=== PATIENT | male | born 1995 | race Two or more races ===

== ENCOUNTER 2019-12-04 19:53 | Emergency (ER) | payer SELFPAY ==
[2019-12-04] MEDS ORDERED: Lidocaine 1% with EPINEPHrine 1:100,000 20 ML MDV INFILT ONE (19:54)
--- NOTE | 2019-12-04 21:30 | EDM.PDOC ---
ED HPI GENERAL MEDICAL PROBLEM - General Stated Complaint: CUT FINGER Time Seen by Provider: 12/04/19 20:05 Source of Information: Reports: Patient, Family, Night Time Nanny History Limitations: Reports: No Limitations - History of Present Illness INITIAL COMMENTS - FREE TEXT/NARRATIVE: using a utility knife and it cut his left thumb through the nail about 11am thia morning , minimal amount of bleeding that later stopped , last tetanus 3yrs ago , per pt . Onset: Today Onset Date: 12/04/19 Onset Time: 11:00 Duration: Hour(s): (10), Constant Context: Reports: Trauma Associated Symptoms: Reports: No Other Symptoms Treatments CONTINUITY READER: Reports: Acetaminophen L thumb Pain Score (Numeric/FACES): 2 - Related Data Home Meds: Home Meds cephALEXin [Keflex] 500 mg PO Q8H #15 cap 12/04/19 [Rx] ED ROS GENERAL - Review of Systems Review Of Systems: Comprehensive ROS is negative, except as noted in HPI. ED EXAM, SKIN/RASH Exam: See Below Exam Limited By: No Limitations General Appearance: Alert, WD/WN, No Apparent Distress Eye Exam: Bilateral Eye: EOMI Ears: Normal External Exam Nose: Normal Inspection Throat/Mouth: Normal Inspection Head: Atraumatic, Normocephalic Neck: Supple, Non-Tender, Full Range of Motion Respiratory/Chest: Lungs Clear, Normal Breath Sounds Cardiovascular: Regular Rate, Rhythm, No Edema Extremities: Normal Range of Motion, Non-Tender Neurological: Alert, Oriented, CN II-XII Intact Skin: Warm, Intact Location, Skin: Upper Extremity, Left (left thumb) Characteristics: Other (laceration to the left thumb and nail) Associated features: Swelling ED SKIN PROCEDURES - Laceration/Wound Repair Left Upper Digit - 1st (Thumb) Appearance: Subcutaneous, Clean Distal NVT: Neuro & Vascular Intact, No Tendon Injury Anesthetic Type: Local Local Anesthesia - Lidocaine (Xylocaine): 1% with EPI Local Anesthetic Volume: 5cc Skin Prep: Chlorhexidine (Hibiciens), Saline, Sterile Drape Saline Irrigation (cc's): 10 Exploration/Debridement/Repair: Wound Explored Closed with: Sutures Lac/Wound length In cm: 3 Suture Size: 4-0 # of Sutures: 6 Suture Type: Interrupted, Other (ethilon) Sterile Dressing Applied: Nurse Tetanus Status Addressed: Yes Complications: No Progress/Comments: tolerated well , decline to have tetanus ( had in recent past) Course - Vital Signs Last Recorded V/S: Last Vital Signs Temp 36.4 C 12/04/19 19:59 Pulse 99 12/04/19 19:59 Resp 18 12/04/19 19:59 BP 142/113 H 12/04/19 19:59 Pulse Ox 99 12/04/19 19:59 Departure - Departure Time of Disposition: 21:40 Disposition: Home, Self-Care 01 Condition: Good Clinical Impression: Laceration of thumb with damage to nail Qualifiers: Encounter type: initial encounter Laterality: left Laceration of finger of left hand Qualifiers: Encounter type: initial encounter Finger: thumb - Discharge Information *PRESCRIPTION DRUG MONITORING PROGRAM REVIEWED*: Not Applicable *COPY OF PRESCRIPTION DRUG MONITORING REPORT IN PATIENT PACO: Not Applicable Referrals: PCP,None [Primary Care Provider] - Additional Instructions: Keep wound clean and dry dressing off after 48 hrs' suture removal in 7-10 days Sepsis Event Note - Evaluation Sepsis Screening Result: No Definite Risk - Focused Exam Vital Signs: Vital Signs Temp Pulse Resp BP Pulse Ox 12/04/19 19:59 36.4 C 99 18 142/113 H 99 Date Exam was Performed: 12/04/19 Time Exam was Performed: 21:25
[2019-12-04] MEDS ORDERED: Cephalexin 500 MG Cap PO ONE (21:35)
== END 2019-12-04 21:52 | disposition home or self-care (01) ==
LOC: FB.ED 19:53
DX: S61.112A Laceration without foreign body of left thumb with damage to nail, initial encounter (principal); W26.0XXA Contact with knife, initial encounter
CPT/HCPCS: 12002; 99282; A9270